=== PATIENT | female | born 1930 | race Caucasian/White ===

== ENCOUNTER 2016-12-08 12:33 | Emergency (ER) | payer OTHER ==
[~2016-12-08] VITALS: Ht 162.6 cm; Wt 83.9 kg
[~2016-12-08 12:33] MED LIST: ACET325T53 PO; ALEN70TA45 PO; ASPI81TA44 PO; ATEN100T PO; ATOR10TA PO; FURO40TA5 PO; LEVO100T9 PO; LISI-657 PO; METO5TAB7 PO; POTA10TA PO; SPIR50TA PO
--- NOTE | 2016-12-08 12:40 | NUR ---
[id number] FROM [facility] HOME: FEVER, GENERALIZED WEAKNESS SINCE LAST NIGHT. PLACED ON MONITOR. AWAITING MD ORDER
[2016-12-08] MEDS ORDERED: IV NS 0.9% 1,000 ML BAG IV ONE (13:00)
[2016-12-08] MEDS ORDERED: CEFTRIAXONE 1GM BAG (ER ONLY) 50 ML IV ONE ×2 (13:00→13:13)
[2016-12-08] MEDS ORDERED: VANCOMYCIN 1 GM in IV D5W 250 ML IV ONE (13:00)
--- NOTE | 2016-12-08 13:04 | NUR ---
EKG IN PROGRESS
--- NOTE | 2016-12-08 13:04 | NUR ---
RAC #20 IV ACCESS. BLOOD SAMPLE COLLECTED SENT TO LAB
--- NOTE | 2016-12-08 13:10 | NUR ---
FUSION JUNCTURE GRINDER AT BEDSIDE
[2016-12-08 13:11] LABS: BASOPHILS # (AUTO) 0.3 /CMM (0.0-0.2); BASOPHILS % (AUTO) 2.3 % (0.0-2.0); EOSINOPHILS % (AUTO) 0.1 % (0.0-6.0); HEMATOCRIT 38 % (33-45); HEMOGLOBIN 12.1 g/dL (11.5-14.8); LYMPHOCYTES # (AUTO) 0.5 /CMM (0.8-4.8); LYMPHOCYTES % (AUTO) 3.5 % (20.0-44.0); MEAN CORPUSCULAR HEMOGLOBIN 30 PG (26.0-33.0); MEAN CORPUSCULAR HGB CONC 32 g/dl (31.0-36.0); MEAN CORPUSCULAR VOLUME 94 fL (82-100); MONOCYTES # (AUTO) 0.3 /CMM (0.1-1.30); MONOCYTES % (AUTO) 2.2 % (2.0-12.0); NEUTROPHILS # (AUTO) 12.8 /CMM (1.8-8.9); NEUTROPHILS % (AUTO) 91.9 % (43.0-81.0); PLATELET COUNT (AUTO) 198 /CMM (150-450); RDW COEFFICIENT OF VARIATION 13.7 (11.5-15.0); RED BLOOD CELL COUNT(AUTO) 4.05 MIL/uL (4.0-5.2); WHITE BLOOD COUNT (AUTO) 13.9 K/uL (4.3-11.0)
[2016-12-08 13:19] LABS: CALCIUM, SERUM 9.3 mg/dL (8.5-10.1); CARBON DIOXIDE 30 mmol/L (21-32); CHLORIDE 101 mmol/L (98-107); CREATININE 1.2 mg/dL (0.6-1.3); GLUCOSE 211 mg/dL (74-106); POTASSIUM 3.6 mmol/L (3.5-5.1); SODIUM SERUM 138 mmol/L (136-145); UREA NITROGEN, BLOOD 18 mg/dL (7-18)
[2016-12-08 13:25] LABS: ALANINE AMINOTRANSFERASE 20 U/L (12-78); ALBUMIN 2.7 g/dL (3.4-5.0); ALKALINE PHOSPHATASE 67 U/L (46-116); ASPARTATE AMINOTRANSFERASE 22 U/L (15-37); BILIRUBIN,DIRECT 0.4 mg/dL (0.0-0.2); BILIRUBIN,TOTAL 1.7 mg/dL (0.2-1.0); TOTAL PROTEIN, SERUM 6.4 g/dL (6.4-8.2)
[2016-12-08 13:27] LABS: INR 1.15 (0.87-1.13); PROTHROMBIN TIME 12.1 SECS (9.5-12.7); TROPONIN I < 0.017 ng/mL (0.00-0.056)
--- NOTE | 2016-12-08 13:43 | NUR ---
URINE SAMPLE COLLECTED SENT TO LAB
[2016-12-08 14:06] LABS: APPEARANCE,URINE Cloudy (CLEAR); BILIRUBIN,URINE Negative (NEGATIVE); BLOOD, URINE Moderate Ery/uL (NEGATIVE); COLOR,URINE Yellow (YELLOW); KETONES,URINE Negative (NEGATIVE); LEUKOCYTE ESTERASE ,URINE Large (NEGATIVE); NITRITE, URINE Negative (NEGATIVE); PH,URINE 6.5 (5.0-8.0); PROTEIN,URINE 100 mg/dl (NEGATIVE); UGLUCOSE Negative (NEGATIVE)
[2016-12-08 14:15] LABS: WBC,URINE TOO NUMEROUS TO COUN /HPF (0-3)
[2016-12-08 14:16] LABS: BACTERIA,URINE Many /HPF (None Seen); SQUAMOUS EPITHELIAL CELL,UR None Seen /HPF (None Seen)
--- NOTE | 2016-12-08 14:43 | NUR ---
[facility]ED [facility],SPOKE WITH KARMA. EXPECTING A CALL BACK FROM A [place] DOCTOR.
--- NOTE | 2016-12-08 14:51 | NUR ---
DR BRONOSN FROM [facility] ON THE PHONE WITH DR MARTE.
[2016-12-08 15:14] VITALS: BP 104/54
--- NOTE | 2016-12-08 15:37 | NUR ---
REMOVE RAC #20 IV INFLITRATED
--- NOTE | 2016-12-08 15:51 | NUR ---
[facility] CALLED WITH TRANSFER INFORMATION PT ACCEPTED TO [facility] ER ACCEPTING MD IS DR. EDELMIRA PENA NUMBER FOR REPORT IS [phone] ETA FOR TRANSPORT IS [phone]
--- NOTE | 2016-12-08 16:48 | NUR ---
CALLED [facility] TO GIVE REPORT TO PUT ON HOLD FOR AN HOUR . CALLED BACK STILL PUT ON HOLD.
--- NOTE | 2016-12-08 17:01 | NUR ---
GIVEN REPORT TO JOSE AT [facility]
== END 2016-12-08 16:50 | disposition short-term general hospital (02) ==
LOC: ER 12:35
DX: A41.9 Sepsis, unspecified organism (principal); N39.0 Urinary tract infection, site not specified; E03.9 Hypothyroidism, unspecified; E11.22 Type 2 diabetes mellitus with diabetic chronic kidney disease; E11.65 Type 2 diabetes mellitus with hyperglycemia; I12.9 Hypertensive chronic kidney disease with stage 1 through stage 4 chronic kidney disease, or unspecified chronic kidney disease; I45.10 Unspecified right bundle-branch block; E78.00 Pure hypercholesterolemia, unspecified; N18.9 Chronic kidney disease, unspecified; Z79.4 Long term (current) use of insulin; Z79.82 Long term (current) use of aspirin; Z88.0 Allergy status to penicillin; Z88.2 Allergy status to sulfonamides; Z88.8 Allergy status to other drugs, medicaments and biological substances
CPT/HCPCS: 36415; 51701; 71010; 80048; 80076; 81001; 83605 ×2; 84484; 85025; 85730; 87040 ×2; 87077; 87081; 87086; 87186; 93005; 96365; 96368; 99291; A4606; J0696; J3370; J7030 ×2; J7060; 81000-TC; Z7610